=== PATIENT | female | born 1965 | race Caucasian/White ===

== ENCOUNTER 2017-07-23 06:44 | Emergency (ER) | payer OTHER ==
[2017-07-23] MEDS ORDERED: Ketorolac Tromethamine 60 MG/2 ML VIAL ONE (07:45)
[2017-07-23] MEDS ORDERED: Acetaminophen 500 MG TAB ONE (07:45)
[2017-07-23] MEDS ORDERED: Adacel (T-DAP) 0.5 ML VIAL ONE (07:46)
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
== END 2017-07-23 08:57 | disposition home or self-care (01) ==
LOC: NAV ERS 06:44
DX: S40.021A Contusion of right upper arm, initial encounter (principal); F32.9 Major depressive disorder, single episode, unspecified; V19.00XA Pedal cycle driver injured in collision with unspecified motor vehicles in nontraffic accident, initial encounter
CPT/HCPCS: 70450; 72125; 90471; 90715; 96372; J1885